=== PATIENT | female | born 1985 | race Caucasian/White ===

== ENCOUNTER 2020-03-29 16:15 | Outpatient (CLI) | payer OTHER, SELFPAY ==
--- NOTE | ~2020-03-29 | XR_ITS ---
EXAMINATION: XR bone survey comp/metastic EXAM DATE: 03/29/2020 17:04 INDICATION: Right femoral osteochondroma. Pain on right side of neck, scapula. TECHNIQUE: Frontal and lateral projections of following regions obtained; right humerus, left humeru s, right forearm, left forearm, right femur, left femur, right tibia, left tibia, lumbar spine, thora cic spine, cervical spine. Lateral projection skull. Frontal chest x-ray. There are no prior studi es for comparison. FINDINGS: There is mild mid thoracic dextroscoliosis, lower thoracic levoscoliosis. No pneumothorax or acute airspace disease. Mild to moderate disc disease at C5-6. There is mild reversal of the [place] l cervical lordosis which may be positional or spasm. Some upper thoracic kyphosis. The sinuses appea r well aerated. There are no osteoblastic or osteolytic lesions identified. IMPRESSION: Mild thoracolumbar scoliosis. Reviewed, dictated and finalized at location G.
== END 2020-03-29 16:16 | disposition home or self-care (01) ==
LOC: ANHIMG 16:17
PROVIDERS: PCP Family Medicine; Visit Provider Internal Medicine
DX: D16.9 Benign neoplasm of bone and articular cartilage, unspecified (principal); M41.85 Other forms of scoliosis, thoracolumbar region
CPT/HCPCS: 77075

== ENCOUNTER 2020-10-06 08:25 | Outpatient (RCR) | payer OTHER, SELFPAY ==
[2020-09-25 16:12] LABS: Beta HCG Quantitative 186.61 mIU/ML
[2020-09-30 06:44] LABS: Progesterone 33.2 ng/mL (***)
== END 2020-12-24 23:59 | disposition home or self-care (01) ==
LOC: ANHLAB 08:25
PROVIDERS: PCP Family Medicine; Referring Provider Obstetrics & Gynecology; Visit Provider Advanced Practice Midwife
DX: Z32.01 Encounter for pregnancy test, result positive (principal); N97.9 Female infertility, unspecified
CPT/HCPCS: 36415; 84144; 84702

== ENCOUNTER 2020-12-14 19:35 | Emergency (ER) | payer OTHER, SELFPAY ==
[2020-12-14 19:46] VITALS: BP 122/68; PULSE 104; RESP 16; TEMP 36.2; O2SAT 99
[2020-12-14] MEDS: SODIUM CHLORIDE 0.9% IV 1,000 ML 999 ML IV CONT (20:17)
[2020-12-14] MEDS: METOCLOPRAMIDE HCL INJ 10 MG/2 ML VIAL IV PUSH (20:18)
[2020-12-14] MEDS: diphenhydrAMINE HCl INJ 50 MG/ML VIAL 25 MG IV PUSH (20:18)
--- NOTE | 2020-12-14 20:29 | ED.HA ---
HPI - Headache General Chief Complaint: Headache Stated Complaint: headache Time Seen by Provider: 12/14/20 19:58 Source: patient Mode of arrival: ambulatory Limitations: no limitations History of Present Illness HPI Narrative: This is a 35 year old female that presents to the ER for migraine x 2 days. Reports the pain is behind her right eye and is a pressure. Reports history of migraines due to a TBI in her 20s. She took Fioricet and Tylenol with little relief. No longer on her preventive medication as she is 15 weeks . Her OB is Dr. Crowe. Denies fever, vision changes, vomiting, numbness, or weakness. Related Data Home Medications Medication Instructions Recorded Confirmed cholecalciferol (vitamin D3) 125 125 mcg PO DAILY 03/29/20 mcg (5,000 unit) capsule Allergies Allergy/AdvReac Type Severity Reaction Status Date / Time No Known Allergies Allergy Unverified 11/29/20 08:03 Review of Systems Review of Systems: Narrative: CONSTITUTIONAL: Denies fever GASTROINTESTINAL: Denies vomiting All systems reviewed & are unremarkable except as noted in HPI and below PMFSH Past Medical History Medical History ADD (attention deficit disorder) without hyperactivity Hx of traumatic brain injury Migraines, neuralgic Social History Social History (Updated 11/29/20 @ 08:07 by Janee Davidson) Social History: Smoking status: Never smoker Second hand tobacco smoke exposure: No Alcohol intake: never Substance use: never Substance use type: does not use Gender identity (if verbalized by the patient): Female Exam Narrative: Exam Narrative: GENERAL: Well-appearing, well-nourished, and in no acute distress. HEAD: Normocephalic, atraumatic. EYES: PERRLA and EOMI. ENT: Nares clear, no rhinorrhea or epistaxis. Mucous membranes moist. Oropharynx without tonsillar hypertrophy exudate or other lesions. Bilateral TMs pearly gabriel non-bulging NECK: Supple. No adenopathy or masses. CHEST: Clear to auscultation. No respiratory distress. No wheezes rales or rhonchi HEART: Regular rate and rhythm. No murmur heard. Normal peripheral pulses. ABDOMEN: Soft, nontender, nondistended, normal active bowel sounds. EXTREMITIES: Normal range of motion. No edema. Strength equal in bilateral upper and lower extremities (5/5) SKIN: Warm, dry, no rash. NEURO: No focal deficits. Alert and oriented x3. Cranial nerves II through XII grossly intact PSYCH: Normal mood and affect Course Vital Signs Vital signs: Vital Signs Temperature 97.1 F L 12/14/20 19:46 Pulse Rate 104 H 12/14/20 19:46 Respiratory Rate 16 12/14/20 19:46 Blood Pressure 122/68 12/14/20 19:46 Pulse Oximetry 99 12/14/20 19:46 Temperature 97.1 F L 12/14/20 19:46 Pulse Rate 104 H 12/14/20 19:46 Respiratory Rate 16 12/14/20 19:46 Blood Pressure 122/68 12/14/20 19:46 Pulse Oximetry 99 12/14/20 19:46 MDM - Headache MDM Narrative Medical decision making narrative: Patient presents the emergency department for migraine headache. Has history of migraines. Her vitals are stable. She is neurologically intact. Given IV fluids, Tylenol, Reglan and Benadryl with relief. Reports she is feeling better and would like to go home. Patient is currently 15 weeks , heart tones noted at 158. She denies any related issues. She is to follow-up at her scheduled appointment with her OB next week. Was also encouraged to follow-up with her neurologist. She is stable and felt appropriate for further outpatient evaluation. She was given warnings to return to the ER Critical Care Time Critical Care Time Critical Care Time: No Discharge Plan Discharge Clinical Impression: Migraine Qualifiers: Migraine type: with aura Status migrainosus presence: without status migrainosus Intractability: not intractable Qualified Code(s): G43.109 - Migraine with aura
== END 2020-12-14 22:24 | disposition home or self-care (01) ==
PROVIDERS: Emergency Provider Emergency Medicine; PCP Family Medicine
DX: O99.352 Diseases of the nervous system complicating pregnancy, second trimester (principal); G43.109 Migraine with aura, not intractable, without status migrainosus; Z87.820 Personal history of traumatic brain injury; Z3A.15 15 weeks gestation of pregnancy
CPT/HCPCS: 96361; 96374; 96375; 99284; J0131; J1200; J2765; J7030

== ENCOUNTER 2024-05-12 09:09 | Outpatient (CLI) | payer OTHER, SELFPAY ==
[2024-05-22 03:47] LABS: Estradiol, Ultrasensitive 91 pg/mL
== END 2024-05-12 09:10 | disposition home or self-care (01) ==
PROVIDERS: Visit Provider Nurse Practitioner Obstetrics & Gynecology
DX: R23.2 Flushing (principal)
CPT/HCPCS: 36415; 82670; 83001; 84443

== ENCOUNTER 2024-06-23 11:06 | Outpatient (CLI) | payer OTHER, SELFPAY ==
--- NOTE | ~2024-06-23 | MM_ITS ---
EXAMINATION: MM screening radha BI w bryce HISTORY: Screening TECHNIQUE: Craniocaudal and mediolateral oblique 3-D tomosynthesis images were obtained and synthetic 2-D images were generated. CAD analysis was submitted and interpreted. COMPARISON: No prior studies for comparison. BREAST PARENCHYMAL COMPOSITION: Dense: The breasts are extremely dense, which lowers the sensitivity of mammography. FINDINGS: There is no evidence of suspicious mass, calcification, or architectural distortion to sugg est malignancy in either breast. There has been no suspicious interval change. IMPRESSION: 1. No mammographic evidence of malignancy. 2. Recommend routine screening mammography in one year. BI-RADS Category 1: Negative Reviewed, dictated and finalized at location B. ULATOR
== END 2024-06-23 11:07 | disposition home or self-care (01) ==
LOC: MICIMG 11:07
PROVIDERS: PCP Family Medicine; Visit Provider Family Medicine
DX: Z12.31 Encounter for screening mammogram for malignant neoplasm of breast (principal)
CPT/HCPCS: 77063; 77067